=== PATIENT | female | born 1960 | race African-American/Black ===

== ENCOUNTER 2017-07-22 11:35 | Emergency (ER) | payer MEDICARE, MEDICAID ==
--- NOTE | 2017-07-22 13:19 | HP ---
DATE OF SERVICE: 07/22/2017 HISTORY OF PRESENT ILLNESS: The patient is a 56-year-old with chronic indwelling tracheostomy. He i s here for a tracheostomy change. PAST MEDICAL HISTORY: Notable for stroke in the past. The remainder of history is unchanged from pr evious visits. PHYSICAL EXAMINATION: GENERAL: She is a chronically ill-appearing female, who is in no distress. She has a chronic midlin e tracheostomy in place. LUNGS: Clear. CARDIAC: S1, S2 regular. ABDOMEN: Soft. EXTREMITIES: No edema. ASSESSMENT: History of stroke with chronic indwelling tracheostomy. PLAN: The tracheostomy was easily exchanged with 6.0 cuffless Shiley trach. She needs to have her t kana changed again in 3 months. She can arrange this through the office.
== END 2017-07-22 13:30 | disposition home or self-care (01) ==
LOC: ERS 11:35
DX: Z43.0 Encounter for attention to tracheostomy (principal); E11.9 Type 2 diabetes mellitus without complications; K21.9 Gastro-esophageal reflux disease without esophagitis; I10 Essential (primary) hypertension; F41.9 Anxiety disorder, unspecified; Z86.73 Personal history of transient ischemic attack (TIA), and cerebral infarction without residual deficits
CPT/HCPCS: 99284

== ENCOUNTER 2017-09-19 06:30 | Emergency (ER) | payer MEDICARE, MEDICAID ==
--- NOTE | 2017-09-19 07:58 | RAD ---
KUB: Date: 09/19/17 PROVIDED CLINICAL HISTORY: Gastrostomy tube placement. FINDINGS: Evaluation is limited by patient body habitus and patient motion. Contrast material is noted overlyin g the left upper quadrant, with delineation of rugal folds, compatible with intragastric placement of the gastrostomy tube. IMPRESSION: As above. POS: LENA
[2017-09-19] MEDS ORDERED: GASTROGRAFIN 30 ML BOT ONE (09:00)
== END 2017-09-19 08:52 | disposition home or self-care (01) ==
LOC: SCSER 06:30
DX: K94.23 Gastrostomy malfunction (principal); E11.9 Type 2 diabetes mellitus without complications; K21.9 Gastro-esophageal reflux disease without esophagitis; I10 Essential (primary) hypertension; E03.9 Hypothyroidism, unspecified; F41.9 Anxiety disorder, unspecified; Z79.899 Other long term (current) drug therapy; Z86.73 Personal history of transient ischemic attack (TIA), and cerebral infarction without residual deficits
CPT/HCPCS: 43760; 74018; B4087

== ENCOUNTER → 2017-11-09 | Day surgery (SDC) | payer MEDICARE, MEDICAID ==
--- NOTE | 2017-11-09 12:05 | HP ---
HISTORY OF PRESENT ILLNESS: Charito is a 57-year-old female who has had a stroke in the past. She has a chronic indwelling tracheostomy. Instead of the long term bringing her to my office for trach perez cerda, they accidentally brought her to the emergency room today and I was asked to come down here an d see her and change up straight. The patient's 6.0 Shiley cuffless trach was changed out without difficulty. PHYSICAL EXAMINATION: VITAL SIGNS: On exam, otherwise unchanged. She can be sent back to the long term. She can see me in 3 months for followup trach change in e office.
== END ==
LOC: ERS 10:30 → ER/OP 10:30 → EDSTATUS 11:58 → ERS 12:15
PROVIDERS: ATTEND Emergency Medicine
DX: Z43.0 Encounter for attention to tracheostomy (principal); E11.9 Type 2 diabetes mellitus without complications; K21.9 Gastro-esophageal reflux disease without esophagitis; I10 Essential (primary) hypertension; E03.9 Hypothyroidism, unspecified; G82.50 Quadriplegia, unspecified; F41.9 Anxiety disorder, unspecified; Z86.73 Personal history of transient ischemic attack (TIA), and cerebral infarction without residual deficits; Z79.899 Other long term (current) drug therapy